=== PATIENT | male | born 1960 | race Caucasian/White ===

== ENCOUNTER → 2020-07-04 07:38 | Outpatient (CLI) | payer OTHER, SELFPAY ==
[2020-07-04] MEDS: COVID-19 VACC #1, MRNA(MOD) 100 MCG/0.5 ML VIAL IM (07:46)
== END ==
PROVIDERS: PCP Internal Medicine; Visit Provider Internal Medicine
DX: Z23 Encounter for immunization (principal)
CPT/HCPCS: 0011A; 91301

== ENCOUNTER → 2020-08-02 07:35 | Outpatient (CLI) | payer OTHER, SELFPAY ==
[2020-08-02] MEDS: COVID-19 VACC #2, MRNA(MOD) 100 MCG/0.5 ML VIAL IM (07:45)
== END ==
PROVIDERS: PCP Internal Medicine; Visit Provider Internal Medicine
DX: Z23 Encounter for immunization (principal)
CPT/HCPCS: 0012A; 91301

== ENCOUNTER 2023-06-30 11:54 | Emergency (ER) | payer BC, SELFPAY ==
[2023-06-30 12:06] VITALS: BP 200/96; PULSE 94; RESP 18; TEMP 37.3; O2SAT 97; BMI 27.8
--- NOTE | 2023-06-30 12:39 | ED.UPPEXIN ---
HPI - Extremity Injury (Upper) <Nicholas Saarh PA-C - Last Filed: 06/30/23 13:35> General Chief Complaint: Extremity Injury, Upper Stated Complaint: Rt hand index finger and thumb are numb Time Seen by Provider: 06/30/23 12:38 Source: patient Mode of arrival: Ambulatory History of Present Illness HPI narrative: 62-year-old male presents to the ED with 1 day of right index finger and thumb numbness, tingling. Patient states that he has had recurring episodes of numbness in that hand, however was prolonged today which brought him to the ED. Patient denies any weakness. Patient endorses full range of motion. Patient is right-hand dominant and does a lot of computer work. Patient extensively uses the keyboard and mouse with his right hand. Patient denies any trauma. Denies pain. Related Data Previous Rx's Medication Instructions Recorded lisinopril 10 mg tablet 10 mg PO DAILY #90 tabs 03/06/23 Allergies Allergy/AdvReac Type Severity Reaction Status Date / Time No Known Drug Allergies Allergy Unverified 03/06/23 15:37 Review of Systems <Nicholas Sarah PA-C - Last Filed: 06/30/23 13:35> Constitutional Constitutional: Denies chills, Denies fatigue, Denies fever(s), Denies frequent falls, Denies lethargy and Denies weakness Eyes Eyes: Denies change in vision, Denies eye discharge, Denies irritation and Denies loss of vision ENT Ears, Nose, Mouth, and Throat: Denies change in voice, Denies dizziness, Denies neck pain, Denies sore throat and Denies throat swelling Cardiovascular Cardiovascular: Denies chest pain, Denies irregular heart rhythm, Denies lightheadedness, Denies palpitations, Denies dyspnea, Denies dyspnea on exertion and Denies orthopnea Respiratory Respiratory: Denies cough, Denies dyspnea, Denies dyspnea on exertion and Denies wheezing Gastrointestinal Gastrointestinal: Denies abdominal pain, Denies change in bowel habits, Denies diarrhea, Denies nausea and Denies vomiting Musculoskeletal Musculoskeletal: Denies neck pain and Denies numbness Comments: Right thumb, forefinger numbness, tingling Integumentary/Breasts Skin/Breast: Denies pruritus, Denies erythema, Denies rash and Denies wounds Neurologic Neurologic: Denies behavioral changes, Denies confusion, Denies dizziness, Denies frequent falls, Denies loss of vision, Denies numbness and Denies weakness Psychiatric Psychiatric: Denies anxiety, Denies behavioral changes, Denies confusion, Denies depression, Denies homicidal ideation and Denies suicidal ideation Endocrine Endocrine: Denies fatigue, Denies flushing and Denies palpitations Hematologic/Lymphatic Hematologic/Lymphatic: Denies easy bruising Allergic/Immunologic Allergic/Immunologic: Denies urticaria, Denies throat swelling and Denies wheezing Patient History <Nicholas Sarah PA-C - Last Filed: 06/30/23 13:35> Medical History Allergies Gout Mumps Measles Chicken pox Tobacco use disorder Hypertension Family History Mother Alzheimer's disease Social History Smoking Status: Current every day smoker Smoking Status: Current every day smoker tobacco type: cigarettes alcohol intake frequency: 3 or more drinks per day Alcohol type: hard liquor Substance Use Type: does not use Exam <KEVIN Vazquez Last Filed: 06/30/23 13:35> Narrative Exam Narrative: Const General:?cooperative, healthy appearing and comfortable [facility] Head:?normal to inspection Ears:?hearing grossly normal bilaterally Nose:?external nose normal Face and sinus:?normal facial exam and sinuses nontender Mouth:?oral mucosae normal Throat:?posterior oropharynx normal Eyes General:?appearance normal, both eyes and all related structures Neck Neck:?normal visual inspection and no lymphadenopathy noted Resp Effort & Inspection:?normal respiratory effort Auscultation:?clear to auscultation bilaterally Cardio Rate:?regular rate Rhythm:?regular rhythm Musculoskeletal There is full range of motion of the right wrist, fingers, elbow. Strength and sensation intact. Patient is neurovascularly intact. No tenderness to palpation. No swelling, erythema, deformities on exam. Neuro General:?patient alert, patient awake and patient oriented x3 Initial Vital Signs Initial Vital Signs: Vital Signs Temperature 99.2 F 06/30/23 12:06 Pulse Rate 94 H 06/30/23 12:06 Respiratory Rate 18 06/30/23 12:06 Blood Pressure 200/96 H 06/30/23 12:06 Pulse Oximetry 97 06/30/23 12:06 Oxygen Delivery Method Room Air 06/30/23 12:06 <Michelle Yusuf DO - Last Filed: 06/30/23 19:56> Initial Vital Signs Initial Vital Signs: Vital Signs Temperature 99.2 F 06/30/23 12:06 Pulse Rate 94 H 06/30/23 12:06 Respiratory Rate 18 06/30/23 12:06 Blood Pressure 200/96 H 06/30/23 12:06 Pulse Oximetry 97 06/30/23 12:06 Oxygen Delivery Method Room Air 06/30/23 12:06 Course <Nicholas Sarah PA-C - Last Filed: 06/30/23 13:35> Vital Signs Vital signs: Vital Signs - 8 hr 06/30/23 12:06 06/30/23 13:05 Temperature 99.2 F Pulse Rate 94 H 79 Respiratory Rate 18 18 Blood Pressure 200/96 H 196/96 H Pulse Oximetry 97 98 Oxygen Delivery Method Room Air Room Air <Michelle Yusuf DO - Last Filed: 06/30/23 19:56> Vital Signs Vital signs: Vital Signs - 8 hr 06/30/23 12:06 06/30/23 13:05 Temperature 99.2 F Pulse Rate 94 H 79 Respiratory Rate 18 18 Blood Pressure 200/96 H 196/96 H Pulse Oximetry 97 98 Oxygen Delivery Method Room Air Room Air MDM - Extremity Injury (Upper) <Nicholas Sarah PA-C - Last Filed: 06/30/23 13:35> MDM Narrative Medical decision making narrative: 62-year-old male presents to the ED with 1 day of right index finger and thumb numbness, tingling. History and physical exam is most consistent with carpal tunnel syndrome. Recommend a wrist brace for the next 4 weeks. Recommend Tylenol and ibuprofen if patient were to experience pain. Recommend follow-up with his PCP Dr. Palomo. ED return precautions were discussed with patient. Patient verbalized understanding. Medical records reviewed: Yes Discharge Plan Departure Patient Disposition: Home Clinical Impression: Carpal tunnel syndrome of right wrist Instructions: Carpal Tunnel Syndrome Activity Restrictions/Additional Instructions: You were evaluated in the ED today for numbness in the left thumb and forefinger. Your physical exam is reassuring and your symptoms are most consistent with carpal tunnel syndrome. Please ensure to use good ergonomics safety and have your elbow above the table level when using a keyboard or mouse. You may also try a wrist brace for the next 4 weeks, where it night and day. Please follow-up with your PCP Dr. Palomo as soon as possible for further evaluation. You may also take ibuprofen, Tylenol if you have discomfort. Return to the ED if you have worsening symptoms. Prescriptions: No Action lisinopril 10 mg tablet 10 mg PO DAILY Qty: 90 3RF Referrals: Dillon Palomo DO [Primary Care Provider] - Stand Alone Forms: Patient Portal/API ED Sign-out <Michelle Yusuf DO - Last Filed: 06/30/23 19:56> Cosign ED Attending Anature Attestation: I was immediately available in the department for consultation.
[2023-06-30 13:05] VITALS: BP 196/96; PULSE 79; RESP 18; O2SAT 98
== END 2023-06-30 13:06 | disposition home or self-care (01) ==
PROVIDERS: Emergency Provider Student in an Organized Health Care Education/Training Program; PCP Family Medicine
DX: G56.01 Carpal tunnel syndrome, right upper limb (principal)
CPT/HCPCS: 99281

== ENCOUNTER 2024-01-22 06:59 | Day surgery (SDC) | payer BC, SELFPAY ==
[2024-01-22] VITALS (7 sets, daily range): BP systolic 72–140; BP diastolic 48–75; PULSE 66–98; RESP 13–18; TEMP 36.1–37.3; O2SAT 95–99
--- NOTE | 2024-01-22 | PATH_ITS ---
[facility] Accession Number: [id number] No. of containers..05 Tissue . 01 Material submitted: . PART A: colon - ASCENDING COLON POLYP PART B: colon - DESCENDING POLYP 40-45 CM PART C: colon - DESCENDING POLYP 40-45 CM PART D: colon - RECTAL POLYP PART E: colon - SIGMOID POLYP . 01 Clinical history: . 01/23/2024 PER DANILO (OR), NOTE DESCENDING POLYP 40-45 CM (BOTH PART B/C) - JEG . 01 Diagnosis: A. ASCENDING COLON POLYP, BIOPSY: Tubular adenoma. . B. DESCENDING COLON POLYP, 40-45 CM, BIOPSY: Tubular adenoma. . C. DESCENDING COLON POLYP, 40-45 CM, BIOPSY: Tubulovillous adenoma. No high-grade dysplasia or malignancy. . D. RECTAL POLYP, BIOPSY: Tubular adenoma. . E. SIGMOID COLON POLYP, BIOPSY: Hyperplastic polyp. [facility] 01/26/2024 1153 Local . 01 Electronically signed: . Sherri Fairchild MD, Pathologist NPI- [id number] . 01 Gross description: . A. Received in formalin with two patient identifiers and ascending colon polyp, consists of a 0.3 x 0.2 x 0.1 cm, estrada-brown soft tissue, which is entirely submitted in cassette A1. B. Received in formalin with two patient identifiers and descending polyp at 40-45 cm per requisition, consists of three estrada irregular polypoid tissues ranging from 0.2 up to 0.6 cm in greatest dimension. The largest polypoid tissue is inked at the base, bisected, and the specimens are entirely submitted in cassette B1. C. Received in formalin with two patient identifiers and descending polyp at 40-45 cm per requisition, consists of two estrada-white polypoid tissues measuring 0.2 and 0.6 cm in greatest dimension. The largest polyp is inked at the base, bisected, and the specimens are entirely submitted in cassette C1. D. Received in formalin with two patient identifiers and rectal polyp, consists of a 1.1 x 0.6 x 0.5 cm, estrada, polypoid tissue, which is inked at the base, quadrisected, and entirely submitted into cassette D1. E. Received in formalin with two patient identifiers and sigmoid polyp, consists of a 0.8 x 0.3 x 0.1 cm, irregular, estrada-brown, polypoid tissue, which is entirely submitted in cassette E1. ([id number]) /MRV 01/23/2024 1014 Local . 01 Pathologist provided ICD-10: D12.2, D12.4, D12.8, D12.5 . 01 CPT . 318405, 788067, 335620, 208331, 105952 Specimen Comment: A courtesy copy of this report has been sent to [phone] Performed at: [address] [id number] MD Brock Brannon MD Phone: [phone]
--- NOTE | 2024-01-22 07:40 | P.HP_ITS ---
History of Present Illness History of Present Illness Date Patient Seen: 01/22/24 Time Patient Seen: 07:40 Chief complaint: Screening Colonoscopy Narrative: Esdras is a 63-year-old man who is here for a colonoscopy. He has never had 1 before. No rectal bleeding. No family history of colon cancer. 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 Hematochezia Allergies Gout Mumps Measles Chicken pox Tobacco use disorder Hypertension Family History Mother Alzheimer's disease Social History Smoking Status: Current every day smoker Meds Home Medications and Allergies Home Medications Medication Instructions Recorded Confirmed Type lisinopril 10 mg tablet 10 mg PO BID #180 tabs 08/11/23 01/22/24 Rx indomethacin 50 mg capsule 50 mg PO TID 30 days #90 caps 11/03/23 12/04/23 Rx sodium,potassium,mag sulfates 17.5 See Rx Instructions PO .COMPLEX 12/23/23 Rx gram-3.13 gram-1.6 gram oral soln #354 mL (Suprep Bowel Prep Kit) Allergies Allergy/AdvReac Type Severity Reaction Status Date / Time No Known Drug Allergies Allergy Verified 01/22/24 07:17 Exam Vital Signs (past 8 hours): - 01/22/24 07:18 Temperature 97 F L Pulse Rate 82 Respiratory Rate 13 Blood Pressure 134/73 Pulse Oximetry 99 Oxygen Delivery Method Room Air Oxygen Delivery Method Room Air Const General: No acute distress Resp Effort & Inspection: normal respiratory effort Assessment & Plan Assessment and plan (1) Colon cancer screening: Status: Acute Plan Colonoscopy Time-Based Coding :: [TOTAL MINUTES] spent with patient and on the chart (including review of chart, obtaining history, exam, reviewing outside data, placing orders, documenting exam and treatment plan, and counseling patient) on [DATE].
--- NOTE | 2024-01-22 08:31 | PM.OP.COLON ---
Operative Date/Time/Diagnoses Date of procedure: 01/22/24 Time of procedure: 08:31 Pre-op diagnosis: Colon cancer screening Post-op diagnosis: same Procedure & Clinicians Study performed: Colonoscopy Same procedure as scheduled: Yes Surgeon: Luis Eduardo Ang Procedure Notes Procedure in detail: Surgeon: Luis Eduardo Ang MD Anesthesia: Mariya Barrett CRNA Procedure: The patient was brought to the endoscopy suite, placed in left lateral decubitus position. The patient was connected to monitoring devices. A time-out was performed. Sedation was administered. Once the patient was adequately sedated, a digital rectal exam was performed and was normal. The scope was then inserted and advanced to the cecum where the appendiceal orifice was identified and photographed. The scope was then slowly withdrawn over greater than 6 minutes. The mucosa was thoroughly inspected. There was 6 mm polyp in the ascending colon removed with a cold snare There was a 1 cm polyp in the descending colon at approximately 45 cm removed with a cold snare There was a 1 cm polyp in the descending colon at approximately 40 cm and removed with cold snare There was 5 mm rectal polyp removed with a cold snare There was a 1.6 cm rectal polyp removed with a cold snare. The scope was retroflexed in the rectum. No other abnormalities noted. The scope was straightened and removed. The patient was awakened and brought to recovery. Scope withdrawal time: 20 minutes Sedation time: 30 minutes EBL: 5 mL Findings: Multiple polyps up 2.6 as listed above Post-procedure Disposition: PACU
== END 2024-01-22 09:09 | disposition home or self-care (01) ==
PROVIDERS: PCP Family Medicine; Referring Provider Surgery; Visit Provider Surgery
PROC: 0DJD8ZZ Inspection of Lower Intestinal Tract, Via Natural or Artificial Opening Endoscopic (ICD-10-PCS; CPT 45378; principal; 2024-01-22 08:15)
DX: Z12.11 Encounter for screening for malignant neoplasm of colon (principal); D12.2 Benign neoplasm of ascending colon; D12.4 Benign neoplasm of descending colon; K63.5 Polyp of colon; K62.1 Rectal polyp
CPT/HCPCS: 45385; J2704

== ENCOUNTER 2024-04-06 10:54 | Day surgery (SDC) | payer BC, SELFPAY ==
[2024-03-30 14:51] VITALS: BMI 28.8
[2024-04-06] VITALS (9 sets, daily range): BP systolic 103–132; BP diastolic 68–85; PULSE 84–121; RESP 14–25; TEMP 36.8–37.2; O2SAT 92–99; BMI 27.8
[2024-04-06] MEDS: LACTATED RINGERS 1,000 ML 42 ML IV (11:22)
[2024-04-06] MEDS: ACETAMINOPHEN 325 MG TABLET 975 MG PO (11:22)
[2024-04-06] MEDS: ALBUTEROL/IPRATROPIUM 3 ML AMPUL INH (11:31)
--- NOTE | 2024-04-06 11:33 | PM.PREOP ---
Pre-operative Note COVID-19 COVID-19 status: Not tested Interval Note History & Physical reviewed/Exam performed by Physician: Yes Changes to H&P: No ASA Class (for procedural sedation): II
--- NOTE | 2024-04-06 12:14 | SUR.OPER ---
Lithotomy on padded OR bed, head on pillow, arms secured on padded arm boards at <90 degrees abduction. Legs secured in padded yellow fins stirrups.
[2024-04-06] MEDS: BUPIVACAINE LIPOSOME 266 MG/20 ML VIAL INJ (12:15)
--- NOTE | 2024-04-06 12:29 | PM.OP.1 ---
Operative Date/Time/Diagnoses Date of procedure: 04/06/24 Time of procedure: 12:30 Pre-op diagnosis: Perianal fistula Post-op diagnosis: other (Perianal abscess) Procedure & Clinicians Procedure: Examination under anesthesia and incision and drainage of perianal abscess Same procedure as scheduled: Yes Surgeon: Luis Eduardo Ang Anesthesia Type: General Operative Notes Procedure in detail: The patient is a 63-year-old man who presented with what first appeared to be a perianal fistula. He was brought to the operating room, placed on the table in the supine position and general anesthesia was induced with LMA. He was positioned in lithotomy. The perineum was prepped and draped in the usual fashion and a time-out was performed. We started with a digital rectal exam which was grossly normal. There was a subcutaneous perianal abscess in the left perianal region which showed a small crespo and some purulent fluid could be expressed with pressure. We then made a cruciate incision of 1 cm x 1 cm over the abscess. A small amount of pus was drained. A blunt probe was inserted to gently probe for a possible fistula tract but tissue was too inflamed to definitively palpate a tract. We then packed the incision with a short segment of half-inch iodoform gauze followed by some 4x4s and an ABD pad. EBL: 10 mL Post-operative Condition: stable Disposition: PACU
--- NOTE | 2024-04-06 13:01 | SUR.PHASEI ---
Dr. Ang notified dressing reinforced with ABD due to bleeding. No new orders.
--- NOTE | 2024-04-06 13:07 | SUR.PHASEII ---
IS provided, instructions given. Patient able to reach 2000mls
== END 2024-04-06 13:36 | disposition home or self-care (01) ==
PROVIDERS: PCP Family Medicine; Referring Provider Surgery; Visit Provider Surgery
PROC: (CPT 45990; principal; 2024-04-06 12:15)
DX: K61.0 Anal abscess (principal); I10 Essential (primary) hypertension; F17.210 Nicotine dependence, cigarettes, uncomplicated
CPT/HCPCS: 46050; J0666; J1100; J2250; J2405; J2704; J3010

== ENCOUNTER 2024-06-13 20:09 | Emergency (ER) | payer BC, SELFPAY ==
[2024-06-13 20:12] VITALS: BP 126/60; PULSE 78; RESP 16; TEMP 36.6; O2SAT 97; BMI 28.5
[2024-06-13 20:25] VITALS: PULSE 87; O2SAT 96
[2024-06-13 20:26] VITALS: BP 146/72; PULSE 88; RESP 12; O2SAT 97
[2024-06-13 20:30] VITALS: PULSE 88; RESP 20; O2SAT 98
--- NOTE | 2024-06-13 20:39 | PC.NURSE ---
Pt reports new limited movement to L hand starting after he woke up in the car from a nap. Able to squeeze with hand but unable to move fingers. Reports nodules in his hand that has caused contracture to left 5th finger and are growing in size. Sensation equal. Dr Yusuf notified of above.
--- NOTE | 2024-06-13 20:43 | DI.CT.S_ITS ---
PROCEDURE: CT HEAD/BRAIN WO CON INDICATIONS: left hand not working, etoh, ? head injury TECHNIQUE: Noncontrast 4.5 mm thick angled axial sections acquired from the foramen magnum to the vertex, with coronal and sagittal reformats. For radiation dose reduction, the following was used: automated exposure control, adjustment of mA and/or kV according to patient size. COMPARISON: None. FINDINGS: Image quality: CSF spaces: Basal cisterns are patent. No extra-axial fluid collections. The ventricles are symmetric in size and shape. Brain: No intracranial bleeds or masses. There is cerebral volume loss for age, with resultant ventricular and sulcal prominence. There are periventricular and deep white matter chronic small vessel ischemic changes. There is intracranial internal carotid artery atherosclerosis. Skull and face: Calvarium and visualized facial bones appear intact, without suspicious lesions. Sinuses: Visualized sinuses and mastoids are clear. IMPRESSION: 1. CT head without acute intracranial abnormalities or acute calvarial fractures. 2. Age-related senescent changes and sequela of chronic small vessel ischemic disease. Dictated by: Roe Rucker M.D. on 06/13/2024 at 21:48 Approved by: Roe Rucker M.D. on 06/13/2024 at 21:49
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
[2024-06-13 20:56] LABS: Add Manual Diff / Slide Review NO; Basophils Absolute Auto 200 /uL (0-100); Basophils Percent Auto 1.8 % (0-2); Eosinophils Absolute Auto 300 /uL (0-450); Eosinophils Percent Auto 3.3 % (2-4); Hematocrit 41.2 % (41-53); Hemoglobin 14.6 g/dL (13.5-17.5); Lymphocytes Absolute Auto 2900 /uL (1100-4500); Lymphocytes Percent Auto 33.4 % (25-40); Mean Corpuscular HGB Conc 35.3 % (30-36); Mean Corpuscular Volume 101.9 fL (80-100); Monocytes Absolute Auto 700 /uL (0-900); Monocytes Percent Auto 7.5 % (3-14); Neutrophils Absolute Auto 4800 /uL (1500-7000); Platelet Count 161 X10^3/uL (150-400); Red Blood Cell Count 4.04 X10^6/uL (4.5-5.9); Red Cell Distribution Width 13.4 % (11.6-14.8); White Blood Cell Count 8.8 X10^3/uL (4.5-11.0)
--- NOTE | 2024-06-13 20:57 | EKG_ITS ---
[place] [id number] [place] [id number] Test Date: 2024-06-13 Pat Name: Esdras Corey Department: [facility] Room: Gender: Male Home Care Chaplain: YESIKA GRIER : 1960 Requested By: Order Number: [id number] Reading MD: Luc Ureña MD Measurements Intervals [place] Rate: 75 P: 52 VT: 176 QRS: 52 QRSD: 78 T: 69 QT: 400 QTc: 446 Interpretive Statements Normal sinus rhythm Electronically Signed On 06-14-2024 7:43:18 PDT by Luc Ureña MD
[2024-06-13 21:00] VITALS: PULSE 76; RESP 17; O2SAT 97
[2024-06-13 21:05] LABS: Alanine Aminotransferase 83 IU/L (<50); Albumin 4.7 g/dL (3.5-5.0); Alkaline Phosphatase 182 U/L (38-126); Aspartate Aminotransferase 92 IU/L (17-59); BUN Creatinine Ratio 9.3 (6-22); Bilirubin Total 0.6 mg/dL (0.2-1.3); Blood Urea Nitrogen 7 mg/dL (9-20); Carbon Dioxide 24 mmol/L (22-32); Chloride 104 mmol/L (98-107); Estimated Glomerular Filt Rate > 60 mL/min (>60); Globulin 4.7 g/dL (1.7-4.1); Glucose 136 mg/dL (80-110); HEMOLYSIS 29 (0-50); Potassium 4.2 mmol/L (3.4-5.1); Sodium 143 mmol/L (137-145); Total Protein 9.4 g/dL (6.3-8.2)
[2024-06-13 22:09] VITALS: BP 107/64; PULSE 83; RESP 16; O2SAT 95
== END 2024-06-13 22:11 | disposition home or self-care (01) ==
PROVIDERS: Emergency Provider Emergency Medicine; PCP Family Medicine
DX: G56.32 Lesion of radial nerve, left upper limb (principal)
CPT/HCPCS: 36415; 70450; 80053; 85025; 93005; 93010; 99283; 99284

== ENCOUNTER → 2025-02-03 14:17 | Outpatient (CLI) | payer BC, SELFPAY | LOC: LAB 14:18 | PROVIDERS: PCP Family Medicine; Visit Provider Physician Assistant | DX: L02.214 Cutaneous abscess of groin (principal); L73.2 Hidradenitis suppurativa | CPT/HCPCS: 87070; 87075; 87205 ==

== ENCOUNTER 2025-02-10 15:23 | Emergency (ER) | payer BC, SELFPAY ==
[2025-02-10] VITALS (13 sets, daily range): BP systolic 113–153; BP diastolic 71–95; PULSE 73–93; RESP 16–18; TEMP 36.5; O2SAT 95–100; BMI 27.0
--- NOTE | 2025-02-10 18:43 | ED_ITS ---
HPI - Skin/Abscess/Foreign Bdy General Chief complaint: Skin/Abscess/Foreign Body Stated complaint: Abscess on lower belly Time Seen by Provider: 02/10/25 18:43 Source: patient Mode of arrival: Ambulatory History of Present Illness HPI narrative: 64-year-old male comes into the ED from home for evaluation of groin infection to the lower abdomen, patient states they already on antibiotics states mild improvement to the area but has been ongoing for the past 7 days. States that he does completely antibiotics today. He denies any other symptoms such as fever chills nausea vomiting headache visual disturbance or any other GI/ symptoms time. Patient states that being antibiotic was doxycycline, states that he has a history of this, states that he presents because the area on his abdomen started draining but states that the area in his groin has significantly improved Related Data Home Medications ?Medication ?Instructions ?Recorded ?Confirmed indomethacin 50 mg capsule 50 mg PO TID PRN 11/01/24 1 04/05/24 Previous Rx's ?Medication ?Instructions ?Recorded lisinopril 10 mg tablet 10 mg PO BID #180 tabs 08/27 cetirizine 10 mg capsule (Zyrtec) 10 mg PO DAILY #90 c aps 11/02/24 hydroxyzine HCl 25 mg tablet 25 mg PO BEDTIME #90 tabs 11/02/24 doxycycline hyclate 100 mg tablet 100 mg PO BID #20 ta bs 02/03/25 doxycycline hyclate 100 mg capsule 100 mg PO BID 7 day s #14 caps 02/10/25 Allergies Allergy/AdvReac Type Severity Reaction Status Date / Time No Known Drug Allergies Allergy Verified 02/10/25 15:39 Review of Systems Review of Systems Narrative: General: Denies fever, chills, weight loss HEENT: Denies headache, eye drainage, eye irritation, head trauma, sore throat, voice change Cardiovascular: Denies any chest pain, palpitations, tachycardia Respiratory: Denies any shortness of breath, cough, wheeze, stridor GI/: Positive left groin abscess/swelling/pain Denies any abdominal pain, nausea, vomiting, diarrhea, bright red blood per rectum, melanotic stools, urinary frequency, urinary retention, dysuria, hematuria MSK: Denies any joint pain, muscle pains, swelling Skin: Positive right lower abdomen Neuro: Denies any headache, lightheadedness, dizziness, fainting, weakness Psych: Denies SI/HI Patient History Medical History Elevated LFTs [place]-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 Hematochezia Allergies Gout Mumps Measles Chicken pox Tobacco use disorder Hypertension Family History Mother Alzheimer's disease Social History household members: spouse alcohol intake: current tobacco type: cigarettes alcohol intake frequency: 3 or more drinks per day Alcohol type: hard liquor Exam Narrative Exam Narrative: General: Cooperative, well-developed, not in acute distress HEENT: Normocephalic, atraumatic, PERRLA, normal sclera, eyelids normal Neck: Active full range of motion, atraumatic Chest: Normal to inspection, negative crepitus, no overlying erythema ecchymosis Respiratory: Normal respiratory effort, not in acute respiratory distress, clear to auscultation bilaterally negative cough, wheeze, tachypnea, rhonchi, rales Cardiology: Regular rate rhythm negative gallop, murmur, rubs GI/: Patient with draining area to the right lower abdomen, mild erythema surrounding but no crepitus, no tenderness to palpation to the rest of the abdomen, patient with indurated area to the left groin, no overlying erythema purulent discharge no crepitus noted MSK: Full active range of motion in all 4 extremities, atraumatic, no tenderness to palpation of any bony prominences Skin: No rashes or lesions noted Neuro: Alert awake oriented x3, moves all 4 extremities spontaneously, cranial nerves intact, able to answer all questions appropriately follows commands appropriately Psych: Cooperative, negative suicidal or homicidal ideations Initial Vital Signs Initial Vital Signs: Vital Signs Temperature 97.7 F 02/10/25 15:35 Pulse Rate 78 02/10/25 15:35 Respiratory Rate 18 02/10/25 15:35 Blood Pressure 126/82 02/10/25 15:35 Pulse Oximetry 96 02/10/25 15:35 Oxygen Delivery Method Room Air 02/10/25 15:35 Course Orders Ordered: ED Orders 02/10/25 15:42 Wound Culture and Gram Stain Stat 02/10/25 18:50 CT abdomen pelvis w con Stat 02/10/25 19:10 CBC Auto Diff [Complete Blood Count AUTO DIFF] Stat CMP [Comprehensive Metabolic Panel] Stat Lactate (Lactic Acid) Stat Lipase Stat MAG [Magnesium] Stat PT [Prothrombin Time INR] Stat PTT Partial Thromboplastin Guillaume Stat Discontinued Medications Piperacillin Sod/Tazobactam (Sod 4.5 gm/ Sodium Chloride) 100 mls @ 200 mls/hr IV STAT ONE Stop: 02/10/25 18:53 Last Infusion: 02/10/25 21:26 Dose: Infused Documented By: Admin: 02/10/25 19:32 Dose: 200 mls/hr Documented By: ELAINA Vancomycin HCl/Dextrose (Vancomycin) 2,000 mg in 400 mls @ 200 mls/hr IV NOW ONE Stop: 02/10/25 21:14 Last Infusion: 02/10/25 22:44 Dose: Infused Documented By: Admin: 02/10/25 20:33 Dose: 200 mls/hr Documented By: ELAINA Clindamycin Phosphate (Cleocin) 900 mg in 50 mls @ 50 mls/hr IV NOW ONE Stop: 02/10/25 21:49 Last Admin: 02/10/25 22:31 Dose: 50 mls/hr Documented By: ELAINA Morphine Sulfate (Morphine 4 Mg/Ml Inj) 4 mg IV NOW ONE Stop: 02/10/25 20:38 Last Admin: 02/10/25 20:46 Dose: 4 mg Documented By: ELAINA Morphine Sulfate (Morphine 4 Mg/Ml Inj) 4 mg IV NOW ONE Stop: 02/10/25 22:37 Last Admin: 02/10/25 22:45 Dose: 4 mg Documented By: ELAINA Vital Signs Vital signs: Vital Signs - 8 hr 02/10/25 15:35 02/10/25 16:59 02/10/25 16:59 Temperature 97.7 F Pulse Rate 78 82 Respiratory Rate 18 Blood Pressure 126/82 148/94 H Pulse Oximetry 96 99 Oxygen Delivery Method Room Air 02/10/25 17:00 02/10/25 17:14 02/10/25 17:14 Temperature Pulse Rate 82 86 Respiratory Rate Blood Pressure 153/95 H Pulse Oximetry 100 98 Oxygen Delivery Method 02/10/25 17:30 02/10/25 17:30 02/10/25 18:00 Temperature Pulse Rate 76 73 Respiratory Rate Blood Pressure 124/79 Pulse Oximetry 97 98 Oxygen Delivery Method 02/10/25 18:00 02/10/25 20:00 02/10/25 21:00 Temperature Pulse Rate 89 Respiratory Rate Blood Pressure 123/77 130/78 Pulse Oximetry 98 Oxygen Delivery Method 02/10/25 21:00 02/10/25 21:30 02/10/25 21:30 Temperature Pulse Rate 93 H 92 H Respiratory Rate 16 Blood Pressure 120/74 Pulse Oximetry 96 96 Oxygen Delivery Method 02/10/25 22:00 02/10/25 22:00 02/10/25 22:30 Temperature Pulse Rate 89 84 Respiratory Rate 16 16 Blood Pressure 127/78 Pulse Oximetry 98 95 Oxygen Delivery Method 02/10/25 22:30 02/10/25 23:00 02/10/25 23:00 Temperature Pulse Rate 90 Respiratory Rate Blood Pressure 113/71 114/75 Pulse Oximetry 96 Oxygen Delivery Method MDM - Skin/Abscess/Foreign Bdy Lab Data 02/10/25 19:10 02/10/25 19:10 Labs: Lab Results 02/10/25 02/10/25 Range/Units 19:10 21:37 WBC 9.6 (4.5-11.0) X10^3/uL RBC 3.91 L (4.5-5.9) X10^6/uL Hgb 13.6 (13.5-17.5) g/dL Hct 39.9 L (41-53) % MCV 102.0 H (80-100) fL MCH 34.8 H (26-34) PG MCHC 34.2 (30-36) % RDW 13.4 (11.6-14.8) % Plt Count 205 (150-400) X10^3/uL Neut % (Auto) 62.2 (50-75) % Lymph % (Auto) 31.7 (25-40) % [place] % (Auto) 4.4 (3-14) % Eos % (Auto) 0.8 L (2-4) % Baso % (Auto) 0.9 (0-2) % Neut # (Auto) 6000 (7060-1652) /uL Lymph # (Auto) 3000 (0467-5633) /uL [place] # (Auto) 400 (0-900) /uL Eos # (Auto) 100 (0-450) /uL Baso # (Auto) 100 (0-100) /uL PT 13.4 H (9.4-12.5) SECONDS INR 1.2 (0.9-1.3) APTT 31 (25.1-36.5) SECONDS Sodium 143 (137-145) mmol/L Potassium 3.8 (3.4-5.1) mmol/L Chloride 108 H (98-107) mmol/L Carbon Dioxide 17 L (22-32) mmol/L BUN 17 (9-20) mg/dL Creatinine 0.71 (0.66-1.25) mg/dL Estimated GFR > 60 (>60) mL/min BUN/Creatinine Ratio 23.9 H (6-22) Glucose 110 H (70-99) mg/dL Lactate 2.8 H 2.0 (0.7-2.1) mmol/L Calcium 9.3 (8.4-10.2) mg/dL Magnesium 1.5 L (1.6-2.3) mg/dL Total Bilirubin 0.5 (0.2-1.3) mg/dL AST 44 (17-59) IU/L ALT 21 (<50) IU/L Alkaline Phosphatase 105 (38-126) U/L Total Protein 9.5 H (6.3-8.2) g/dL Albumin 4.6 (3.5-5.0) g/dL Globulin 4.9 H (1.7-4.1) g/dL Albumin/Globulin Ratio 0.9 L (1.0-2.8) Lipase 76 (23-300) U/L [facility] Narrative Medical decision making narrative: Patient is a 64-year-old male history of hypertension, comes into the ED from home for evaluation of persistent abdominal swelling redness pain, states that he was started on doxycycline by his primary care doctor completes the course today, states that he noticed this with a left groin abscess which has significantly improved however he states that the abscess to his right lower abdomen got worse started draining today which brought him in. On my exam there is erythema purulent discharge draining to the right lower abdomen but no overlying fluctuant mass, patient left groin with no obvious sign of abscess but mild induration not involving the scrotum with the rectum, no overlying erythema, no tenderness to palpation, no crepitus. Patient was started on broad-spectrum antibiotics immediately upon arrival. CT scan did show possible concerning foci of free air, did reach out to General surgery Dr. Singh, who personally reviewed the images and states he does not believe this is free air agrees that given patient with reassuring lab work, he already has an appointment with general surgery, he was given strict return precautions he verbalized understanding of this and will be discharged home with oral antibiotics Discharge Plan Departure Patient Disposition: Home Clinical Impression: Cellulitis of abdominal wall Instructions: DI for Cellulitis -- Adult Activity Restrictions/Additional Instructions: Please follow up with the primary care and general surgery Please read the discharge instructions sheet carefully and bring all papers to all doctor follow-up visits, as it may contain information that your doctor may want to see. Disease processes change and evolve, if your symptoms worsen or if you develop any new symptoms that are concerning to you please return for evaluation. Your evaluation today does not show any evidence of any life- threatening/serious illnesses requiring admission to the hospital or surgery. Please follow-up with your doctor for re-evaluation in approximately 1 day. Seek immediate medical attention for any worrisome symptoms. *If you do not have a primary care provider please contact the [facility] Resource line at [phone]. They will ask some questions about your medical history and help get you set up with a doctor in the community. Prescriptions: New doxycycline hyclate 100 mg capsule 100 mg PO BID 7 Days Qty: 14 0RF No Action lisinopril 10 mg tablet 10 mg PO BID Qty: 180 3RF Rx Instructions: start taking BID indomethacin 50 mg capsule 50 mg PO TID PRN Rx Instructions: administer with food or milk Zyrtec 10 mg capsule 10 mg PO DAILY Qty: 90 1RF Rx Instructions: Take one daily in the morning. hydroxyzine HCl 25 mg tablet 25 mg PO BEDTIME Qty: 90 1RF doxycycline hyclate 100 mg tablet 100 mg PO BID Qty: 20 0RF Referrals: Dillon Palomo, [Primary Care Provider, Family Practice] Stand Alone Forms: Patient Portal/API
--- NOTE | 2025-02-10 18:50 | DI.CT.S_ITS ---
PROCEDURE: CT ABDOMEN PELVIS W CON INDICATIONS: Lower abdomen left groin infection, rule out Marcos's TECHNIQUE: After the administration of intravenous contrast, axial sections acquired from the lung bases to the pubic symphysis. Coronal and sagittal reformats were performed. For radiation dose reduction, the following was used: automated exposure control, adjustment of mA and/or kV according to patient size. COMPARISON: None. FINDINGS: Image quality: Diagnostic. Lower Chest: No significant findings. ABDOMEN: Liver: No solid mass. Hepatic steatosis Gallbladder: No radiopaque gallstones or wall thickening. Biliary ducts: No biliary dilation. Pancreas: No ductal dilation. Spleen: Size is within normal limits. Calcified granulomas. Adrenal Glands: No adrenal nodules. Kidneys and Ureters: No hydronephrosis. No solid mass. No complex renal cystic lesion which requires follow up. Stomach and Bowel: Normal colonic caliber, without significant wall thickening. Normal caliber appendix. Sigmoid diverticulosis without acute inflammation. Peritoneum: No abnormal intraperitoneal fluid. No free air. Ventral Wall: No significant ventral hernia. Abdominal Nodes: No retroperitoneal or mesenteric adenopathy by size criteria. Vessels: Aorta and inferior vena cava are normal in size. Aorto bi iliac atherosclerotic calcifications. PELVIS: Pelvic Organs: Unremarkable. Bladder: No bladder wall thickening, accounting for underdistention. Pelvic Nodes: No enlarged lymph nodes. Miscellaneous: No significant inguinal hernias are seen. There is soft tissue thickening/edema in the subcutaneous tissues along the left gluteal fold and superficial peroneal space. Questionable single focus of gas best seen on coronal view () which may be within the soft tissues versus within skin fold. Bones: No aggressive osseous abnormality. IMPRESSION: Soft tissue thickening edema in the left superficial perineal space and left gluteal cleft subcutaneous tissue concerning for infection. Query single focus of gas in the subcutaneous tissue versus skin fold. Additional findings as above. Approved by: Jing Hinds M.D.,Ph.D. on 02/10/2025 at 20:34
[2025-02-10 19:23] LABS: Add Manual Diff / Slide Review NO; Hematocrit 39.9 % (41-53); Hemoglobin 13.6 g/dL (13.5-17.5); Lymphocytes Absolute Auto 3000 /uL (1100-4500); Mean Corpuscular HGB Conc 34.2 % (30-36); Mean Corpuscular Hemoglobin 34.8 PG (26-34); Mean Corpuscular Volume 102.0 fL (80-100); Platelet Count 205 X10^3/uL (150-400)
[2025-02-10] MEDS: PIPERACILLIN/TAZO 4.5 GM in SODIUM CHLORIDE 0.9% 100 ML IV (19:32)
[2025-02-10 19:38] LABS: Alanine Aminotransferase 21 IU/L (<50); Albumin 4.6 g/dL (3.5-5.0); Albumin Globulin Ratio 0.9 (1.0-2.8); Alkaline Phosphatase 105 U/L (38-126); Blood Urea Nitrogen 17 mg/dL (9-20); Calcium 9.3 mg/dL (8.4-10.2); Carbon Dioxide 17 mmol/L (22-32); Chloride 108 mmol/L (98-107); Estimated Glomerular Filt Rate > 60 mL/min (>60); Globulin 4.9 g/dL (1.7-4.1); Glucose 110 mg/dL (70-99); HEMOLYSIS 34 (0-50); INR 1.2 (0.9-1.3); Lipase 76 U/L (23-300); Magnesium 1.5 mg/dL (1.6-2.3); Potassium 3.8 mmol/L (3.4-5.1); Prothrombin Time 13.4 SECONDS (9.4-12.5); Sodium 143 mmol/L (137-145); Total Protein 9.5 g/dL (6.3-8.2)
[2025-02-10 19:39] LABS: Lactate (Lactic Acid) 2.8 mmol/L (0.7-2.1)
[2025-02-10 19:41] LABS: PTT Partial Thromboplastin Tim 31 SECONDS (25.1-36.5)
[2025-02-10] MEDS: VANCOMYCIN 2,000 MG/400 ML PIGGYBACK 200 MG IV (20:33)
[2025-02-10] MEDS: MORPHINE 4 MG/ML INJ IV ×2 (20:46→22:45)
[2025-02-10 20:55] LABS: Reflexed Lactate in 2 Hours Y
[2025-02-10 22:15] LABS: Lactate 2HR (Lactic Acid Rflx) 2.0 mmol/L (0.7-2.1)
[2025-02-10] MEDS: CLINDAMYCIN 900 MG/50 ML PIGGYBACK 50 MG IV (22:31)
== END 2025-02-10 23:45 | disposition home or self-care (01) ==
PROVIDERS: Emergency Provider Student in an Organized Health Care Education/Training Program; PCP Family Medicine
DX: L03.311 Cellulitis of abdominal wall (principal)
CPT/HCPCS: 36415; 74177; 80053; 83605; 83690; 83735; 85025; 85610; 85730; 87070; 87075; 87205; 96365; 96366; 96367; 96368; 96375; 96376; 99284; J2272; J2543; J3375; J7050; Q9967